=== PATIENT | male | born 1945 | race Caucasian/White ===

== ENCOUNTER 2016-10-17 08:45 | Outpatient (RCR) | payer MEDICARE, OTHER ==
[~2016-10-17 08:45] MED LIST: AMBIEN 10MG10 MG PO; CARDURA4 MG PO; COMPAZINE 110 MG/TAB PO; DIOVAN; DIOVAN 80MG80 MG PO; FLOMAX 0.40.4 MG/CAP PO; LEVAQUIN 750MG750 M1 PO; PERCOCET 5/321 UDTAB PO; TOPROL XL100 MG PO; ZOVIRAX400 MG PO; ZYLOPRIM 300MG300 MG PO
== END 2016-10-18 09:04 | disposition home or self-care (01) ==
LOC: MKS.ESL.PT 08:45
DX: M25.561 Pain in right knee (principal); Z87.828 Personal history of other (healed) physical injury and trauma
CPT/HCPCS: G8978-GP; G8979-GP; G8980-GP

== ENCOUNTER 2017-01-13 21:18 | Emergency (ER) | payer MEDICARE, OTHER ==
[~2017-01-13] VITALS: Ht 185.4 cm; Wt 122.7 kg
[2017-01-13 21:24] VITALS: TEMP 97.9
[2017-01-13 22:09] LABS: PH 6 (5-8); SQUAMOUS EPITHELIAL None Seen /hpf; URINE APPEARANCE Hazy; URINE BACTERIA Rare /hpf; URINE BILIRUBIN Negative (NEGATIVE); URINE BLOOD 2+ (NEGATIVE); URINE COLOR Red; URINE GLUCOSE Negative (NEGATIVE); URINE KETONE Negative (NEGATIVE); URINE RBC >50 /hpf; URINE UROBILINOGEN Negative (NEGATIVE); URINE WBC None Seen /hpf
[2017-01-13] MEDS ORDERED: MACROBID 1100 MG/CAP PO (22:18)
[2017-01-13] MEDS ORDERED: FLOMAX 0.40.4 MG/CAP PO (22:18)
[2017-01-13 22:22] VITALS: BP 124/74; PULSE 80
== END 2017-01-13 22:47 | disposition home or self-care (01) ==
LOC: COL.ER 21:18
PROVIDERS: Emergency Medicine
DX: N40.1 Benign prostatic hyperplasia with lower urinary tract symptoms (principal); R33.8 Other retention of urine; I10 Essential (primary) hypertension; Z85.6 Personal history of leukemia

== ENCOUNTER 2017-01-14 01:06 | Emergency (ER) | payer MEDICARE, OTHER ==
[~2017-01-14] VITALS: Ht 185.4 cm; Wt 122.7 kg
[~2017-01-14 01:06] MED LIST changes: +MACROBID 1100 MG/CAP PO
[2017-01-14 01:07] VITALS: TEMP 98.1
[2017-01-14 03:31] VITALS: BP 137/89; PULSE 81
== END 2017-01-14 03:31 | disposition home or self-care (01) ==
LOC: COL.ER 01:06
DX: T83.098A Other mechanical complication of other urinary catheter, initial encounter (principal); R33.9 Retention of urine, unspecified; R31.9 Hematuria, unspecified; I10 Essential (primary) hypertension; Z85.6 Personal history of leukemia

== ENCOUNTER 2017-10-08 06:54 | Emergency (ER) | payer MEDICARE, OTHER ==
[~2017-10-08] VITALS: Ht 185.4 cm; Wt 117.3 kg
[2017-10-08 06:59] VITALS: TEMP 96.9
[2017-10-08 07:33] LABS: COLLECTION METHOD CATHETER
[2017-10-08 08:01] LABS: PH 6 (5-8); SQUAMOUS EPITHELIAL None Seen /hpf; URINE APPEARANCE Clear; URINE BACTERIA Rare /hpf; URINE BILIRUBIN Negative (NEGATIVE); URINE BLOOD 2+ (NEGATIVE); URINE COLOR Amber; URINE GLUCOSE 1+ (NEGATIVE); URINE KETONE Negative (NEGATIVE); URINE LEUKOCYTE ESTERASE Negative (NEGATIVE); URINE NITRATE Negative (NEGATIVE); URINE PROTEIN(semi-quant) 2+ (NEGATIVE); URINE RBC 20-50 /hpf; URINE UROBILINOGEN Negative (NEGATIVE)
[2017-10-08 08:30] VITALS: BP 107/66; PULSE 76
[2017-10-08] MEDS ORDERED: MACROBID 1100 MG/CAP PO (08:39)
[2017-10-08] MEDS ORDERED: FLOMAX 0.40.4 MG/CAP PO (08:39)
== END 2017-10-08 09:02 | disposition home or self-care (01) ==
LOC: COL.ER 06:54
PROVIDERS: Emergency Medicine
DX: R33.9 Retention of urine, unspecified (principal); I10 Essential (primary) hypertension; Z90.79 Acquired absence of other genital organ(s); Z87.430 Personal history of prostatic dysplasia

== ENCOUNTER → 2017-11-18 | Outpatient (CLI) | payer MEDICARE, OTHER ==
[~2017-11-18] MED LIST changes: +DIOVAN 160MG160 MG PO
== END ==
LOC: COL.RAD 09:41
DX: R22.0 Localized swelling, mass and lump, head (principal); Z85.6 Personal history of leukemia

== ENCOUNTER → 2017-11-28 | Outpatient (CLI) | payer MEDICARE, OTHER ==
[~2017-11-28] VITALS: Ht 185.4 cm; Wt 111.6 kg
[2017-11-28 11:15] VITALS: BP 148/78; PULSE 61
[2017-11-28 12:25] VITALS: BP 130/77; PULSE 63
== END ==
LOC: COL.RAD 10:14
DX: R22.0 Localized swelling, mass and lump, head (principal); Z85.6 Personal history of leukemia

== ENCOUNTER 2017-12-29 22:41 | Emergency (ER) | payer MEDICARE, OTHER ==
[~2017-12-29] VITALS: Ht 185.4 cm; Wt 117.3 kg
[2017-12-29 22:46] VITALS: TEMP 97.4
[2017-12-29 23:21] LABS: HEMATOCRIT 42.8 % (42.0-52.0); HEMOGLOBIN 14.3 g/dl (13.5-18.0); MEAN CELL VOLUME 86 fl (80.0-100.0); MEAN CORPUSCULAR HEMOGLOBIN 29 pg (27.0-31.0); MEAN CORPUSCULAR HGB CONC 33 g/dl (33.0-37.0); MEAN PLATELET VOLUME 11.4 fl (7.4-10.4); PLATELET COUNT 87 K/mm3 (130-400); REDCELL DISTRIBUTION WIDTH-CV 14.4 % (11.5-14.5)
[2017-12-29 23:31] LABS: ALBUMIN 3.5 gm/dL (3.5-5.0); BILIRUBIN,TOTAL 0.8 mg/dL (0.0-1.0); CALCIUM 8.8 mg/dL (8.4-10.2); CREATININE, serum 1.2 mg/dL (0.66-1.25); MAGNESIUM 1.8 mg/dL (1.6-2.3); PHOSPHOROUS 2.7 mg/dL (2.5-4.5); POTASSIUM 4.6 mmol/L (3.4-5.0); TOTAL PROTEIN 6.1 gm/dL (6.4-8.2)
[2017-12-29 23:32] LABS: INR 1.1 (0.8-3.0)
[2017-12-29 23:35] LABS: PARTIAL THROMBOPLASTIN TIME 29.6 SECONDS (26.0-37.0)
[2017-12-29 23:36] LABS: BAND 12 % (0-10); EOSINOPHIL 4 % (0-4); LYMPHOCYTE 54 % (20.0-51.0); NEUTROPHILS 28 % (42.0-75.2); PLATELET ESTIMATE DECREASED (NORMAL)
[2017-12-30 00:35] LABS: COLLECTION METHOD CLEAN CATCH
[2017-12-30 00:45] LABS: MUCOUS Present /lpf; PH 5 (5-8); SQUAMOUS EPITHELIAL 0-2 /hpf; URINE APPEARANCE Hazy; URINE BACTERIA Rare /hpf; URINE BILIRUBIN Negative (NEGATIVE); URINE BLOOD 1+ (NEGATIVE); URINE COLOR Amber; URINE GLUCOSE Negative (NEGATIVE); URINE KETONE Trace (NEGATIVE); URINE LEUKOCYTE ESTERASE Trace (NEGATIVE); URINE NITRATE Negative (NEGATIVE); URINE PROTEIN(semi-quant) 2+ (NEGATIVE)
[2017-12-30] MEDS ORDERED: ZYLOPRIM 300MG300 MG PO (01:19)
[2017-12-30 01:47] VITALS: BP 115/585
[2017-12-30] MEDS ORDERED: PERCOCET 325 MG1 TA2 PO (04:00)
[2017-12-30] MEDS ORDERED: ZOFRAN ODT4 MG PO (04:00)
[2017-12-30 05:59] VITALS: PULSE 95
[2017-12-30 06:09] LABS: TROPONIN-I < 0.012 ng/mL (0.000-0.034)
[2017-12-30 08:17] LABS: PATHOLOGY DIFF REVIEW OK
== END 2017-12-30 05:58 | disposition home or self-care (01) ==
LOC: COL.ER 22:41
PROVIDERS: Emergency Medicine
DX: C91.10 Chronic lymphocytic leukemia of B-cell type not having achieved remission (principal); I10 Essential (primary) hypertension
CPT/HCPCS: J1170; J2405; J3010; J7030; Q9967

== ENCOUNTER 2018-02-21 08:33 | Inpatient (IN) | payer MEDICARE, OTHER ==
[~2018-02-21] VITALS: Ht 185.4 cm; Wt 79.0 kg
[2018-02-21] VITALS (10 sets, daily range): BP systolic 109–166; BP diastolic 49–65; PULSE 62–89; TEMP 97.8
[~2018-02-21 08:33] MED LIST changes: +ASPIRIN 81M81 MG/TA2 PO; +CARDIZEM CD 18180 MG PO; +CORDARONE200 MG/TAB PO; +PERCOCET 325 MG1 TA2 PO; +PHENERGAN 25 TA25 MG PO; +PREDNISONE20 MG PO; +ULORIC40 MG PO; +VENTOLIN0.09 MG IH; +ZANTAC 150MG T150 MG PO; +ZOFRAN ODT4 MG PO
[2018-02-21 09:17] LABS: MEAN CELL VOLUME 84 fl (80.0-100.0); MEAN CORPUSCULAR HGB CONC 34 g/dl (33.0-37.0); MEAN PLATELET VOLUME 11.1 fl (7.4-10.4); PLATELET COUNT 114 K/mm3 (130-400); RED BLOOD COUNT 3.21 M/mm3 (4.20-5.60); REDCELL DISTRIBUTION WIDTH-CV 15.6 % (11.5-14.5)
[2018-02-21 09:18] LABS: HEMOGLOBIN 9.2 g/dl (13.5-18.0); MEAN CORPUSCULAR HEMOGLOBIN 29 pg (27.0-31.0)
[2018-02-21] MEDS ORDERED: PACERONE400 MG PO (09:18)
[2018-02-21 09:27] LABS: ALANINE AMINOTRANSFERASE 29 U/L (21-72); ALBUMIN 2.6 gm/dL (3.5-5.0); ALKALINE PHOSPHATASE 54 U/L (50-136); ANION GAP 7 mmol/L (7-16); AST,SGOT 14 U/L (15-37); BILIRUBIN,TOTAL 0.6 mg/dL (0.0-1.0); BLOOD UREA NITROGEN 43 mg/dL (9-20); CALCIUM 7.8 mg/dL (8.4-10.2); CARBON DIOXIDE 22 mmol/L (22-30); CHLORIDE 98 mmol/L (98-107); CREATININE, serum 0.98 mg/dL (0.66-1.25); GLUCOSE 130 mg/dL (74-106); LIPASE 77 U/L (23-300); MAGNESIUM 1.7 mg/dL (1.6-2.3); PHOSPHOROUS 2.5 mg/dL (2.5-4.5); POTASSIUM 4.8 mmol/L (3.4-5.0); SODIUM 128 mmol/L (137-145); TOTAL PROTEIN 5.2 gm/dL (6.4-8.2)
[2018-02-21] MEDS ORDERED: VENTOLIN0.09 MG IH (09:30)
[2018-02-21] MEDS ORDERED: COMPAZINE 110 MG/TAB PO (09:30)
[2018-02-21 09:40] LABS: TROPONIN-I < 0.012 ng/mL (0.000-0.034)
[2018-02-21 09:41] LABS: INR 1.1 (0.8-3.0); PROTHROMBIN TIME 12.5 SECONDS (9.7-12.8)
[2018-02-21 09:44] LABS: PARTIAL THROMBOPLASTIN TIME 25.9 SECONDS (26.0-37.0)
[2018-02-21 09:48] LABS: BAND 8 % (0-10); LYMPHOCYTE 17 % (20.0-51.0); NEUTROPHILS 71 % (42.0-75.2)
[2018-02-21 09:50] LABS: PLATELET ESTIMATE DECREASED (NORMAL)
[2018-02-21 09:52] LABS: TEAR DROP CELLS 1+
[2018-02-21 10:35] LABS: COLLECTION METHOD CLEAN CATCH
[2018-02-21 10:46] LABS: MUCOUS Present /lpf; PH 5 (5-8); SQUAMOUS EPITHELIAL 0-2 /hpf; URINE APPEARANCE Clear; URINE BACTERIA None Seen /hpf; URINE BILIRUBIN Negative (NEGATIVE); URINE BLOOD Negative (NEGATIVE); URINE COLOR Yellow; URINE GLUCOSE Negative (NEGATIVE); URINE KETONE Negative (NEGATIVE); URINE LEUKOCYTE ESTERASE Negative (NEGATIVE); URINE NITRATE Negative (NEGATIVE); URINE PROTEIN(semi-quant) Negative (NEGATIVE); URINE UROBILINOGEN Negative (NEGATIVE)
[2018-02-21 12:18] LABS: MEAN CELL VOLUME 83 fl (80.0-100.0); MEAN CORPUSCULAR HGB CONC 35 g/dl (33.0-37.0); MEAN PLATELET VOLUME 11.2 fl (7.4-10.4); PLATELET COUNT 115 K/mm3 (130-400); RED BLOOD COUNT 3.01 M/mm3 (4.20-5.60); REDCELL DISTRIBUTION WIDTH-CV 15.6 % (11.5-14.5)
[2018-02-21 12:22] LABS: HEMATOCRIT 24.9 % (42.0-52.0); HEMOGLOBIN 8.6 g/dl (13.5-18.0); MEAN CORPUSCULAR HEMOGLOBIN 29 pg (27.0-31.0)
[2018-02-21 12:43] LABS: BAND 4 % (0-10); LYMPHOCYTE 20 % (20.0-51.0); NEUTROPHILS 71 % (42.0-75.2)
[2018-02-21 12:44] LABS: PLATELET ESTIMATE DECREASED (NORMAL)
[2018-02-21 12:46] LABS: ANISOCYTOSIS 1+
[2018-02-21 19:35] LABS: HEMATOCRIT 22.5 % (42.0-52.0); HEMOGLOBIN 7.6 g/dl (13.5-18.0)
[2018-02-22] VITALS (10 sets, daily range): BP systolic 101–131; BP diastolic 54–66; PULSE 88–96; TEMP 97.9–98.8
[2018-02-22 13:06] LABS: MEAN CELL VOLUME 85 fl (80.0-100.0); MEAN CORPUSCULAR HGB CONC 33 g/dl (33.0-37.0); PLATELET COUNT 107 K/mm3 (130-400); RED BLOOD COUNT 2.37 M/mm3 (4.20-5.60); REDCELL DISTRIBUTION WIDTH-CV 16.5 % (11.5-14.5)
[2018-02-22 13:07] LABS: HEMATOCRIT 20.2 % (42.0-52.0); MEAN CORPUSCULAR HEMOGLOBIN 28 pg (27.0-31.0)
[2018-02-22 13:08] LABS: HEMOGLOBIN 6.7 g/dl (13.5-18.0)
[2018-02-22 13:12] LABS: CALCIUM 7.6 mg/dL (8.4-10.2); CREATININE, serum 1.02 mg/dL (0.66-1.25); MAGNESIUM 1.8 mg/dL (1.6-2.3); POTASSIUM 4.5 mmol/L (3.4-5.0)
[2018-02-22 14:10] LABS: ANISOCYTOSIS 1+; BAND 4 % (0-10); LYMPHOCYTE 18 % (20.0-51.0); NEUTROPHILS 74 % (42.0-75.2); PLATELET ESTIMATE DECREASED (NORMAL)
[2018-02-22 14:13] LABS: TEAR DROP CELLS 1+
[2018-02-22 23:32] LABS: HEMOGLOBIN 5.5 g/dl (13.5-18.0)
[2018-02-22 23:33] LABS: HEMATOCRIT 16.4 % (42.0-52.0)
[2018-02-22 23:55] LABS: HEMATOCRIT 16.3 % (42.0-52.0); HEMOGLOBIN 5.4 g/dl (13.5-18.0)
[2018-02-23] VITALS (664 sets, daily range): BP systolic 106–128; BP diastolic 60–75; PULSE 87–119; TEMP 98.2–98.4; O2SAT 94–100
[2018-02-23 08:07] LABS: MEAN CELL VOLUME 87 fl (80.0-100.0); MEAN CORPUSCULAR HGB CONC 33 g/dl (33.0-37.0); MEAN PLATELET VOLUME 10.9 fl (7.4-10.4); PLATELET COUNT 87 K/mm3 (130-400); RED BLOOD COUNT 2.54 M/mm3 (4.20-5.60); REDCELL DISTRIBUTION WIDTH-CV 15.9 % (11.5-14.5)
[2018-02-23 08:10] LABS: HEMATOCRIT 22.2 % (42.0-52.0); HEMOGLOBIN 7.4 g/dl (13.5-18.0); MEAN CORPUSCULAR HEMOGLOBIN 29 pg (27.0-31.0)
[2018-02-23 08:15] LABS: CALCIUM 7.3 mg/dL (8.4-10.2); CREATININE, serum 1.03 mg/dL (0.66-1.25); POTASSIUM 4.2 mmol/L (3.4-5.0)
[2018-02-23 08:37] LABS: BAND 7 % (0-10); LYMPHOCYTE 10 % (20.0-51.0); METAMYELOCYTE 1 % (0-0); NEUTROPHILS 78 % (42.0-75.2)
[2018-02-23 08:38] LABS: PLATELET ESTIMATE DECREASED (NORMAL)
[2018-02-23 08:39] LABS: ANISOCYTOSIS 1+; POLYCHROMASIA 1+
[2018-02-24] VITALS (710 sets, daily range): BP systolic 118–142; BP diastolic 68–79; PULSE 78–93; TEMP 97.5–98.5; O2SAT 77–100
[2018-02-24 00:15] LABS: HEMOGLOBIN 5.8 g/dl (13.5-18.0)
[2018-02-24 00:16] LABS: HEMATOCRIT 16.9 % (42.0-52.0)
[2018-02-24 07:07] LABS: MEAN CELL VOLUME 89 fl (80.0-100.0); MEAN CORPUSCULAR HGB CONC 33 g/dl (33.0-37.0); MEAN PLATELET VOLUME 11.2 fl (7.4-10.4); PLATELET COUNT 76 K/mm3 (130-400); RED BLOOD COUNT 2.44 M/mm3 (4.20-5.60); REDCELL DISTRIBUTION WIDTH-CV 16.3 % (11.5-14.5)
[2018-02-24 07:11] LABS: HEMATOCRIT 21.6 % (42.0-52.0); HEMOGLOBIN 7.2 g/dl (13.5-18.0); MEAN CORPUSCULAR HEMOGLOBIN 30 pg (27.0-31.0)
[2018-02-24 07:16] LABS: CALCIUM 7.1 mg/dL (8.4-10.2); POTASSIUM 3.9 mmol/L (3.4-5.0)
[2018-02-24 07:23] LABS: BAND 9 % (0-10); EOSINOPHIL 2 % (0-4); LYMPHOCYTE 10 % (20.0-51.0); NEUTROPHILS 75 % (42.0-75.2)
[2018-02-24 07:26] LABS: HYPOCHROMIA 1+; PLATELET ESTIMATE DECREASED (NORMAL)
[2018-02-24 07:29] LABS: ANISOCYTOSIS 1+
[2018-02-25] VITALS (723 sets, daily range): BP systolic 99–126; BP diastolic 51–71; PULSE 72–85; TEMP 97.2–98.4; O2SAT 42–100
[2018-02-25 00:44] LABS: HEMOGLOBIN 6.2 g/dl (13.5-18.0)
[2018-02-25 08:03] LABS: MEAN CELL VOLUME 90 fl (80.0-100.0); MEAN CORPUSCULAR HGB CONC 32 g/dl (33.0-37.0); MEAN PLATELET VOLUME 10.9 fl (7.4-10.4); PLATELET COUNT 57 K/mm3 (130-400); RED BLOOD COUNT 2.62 M/mm3 (4.20-5.60); REDCELL DISTRIBUTION WIDTH-CV 18.6 % (11.5-14.5)
[2018-02-25 08:04] LABS: HEMATOCRIT 23.6 % (42.0-52.0); HEMOGLOBIN 7.6 g/dl (13.5-18.0); MEAN CORPUSCULAR HEMOGLOBIN 29 pg (27.0-31.0)
[2018-02-25 08:14] LABS: CALCIUM 7.2 mg/dL (8.4-10.2); CREATININE, serum 0.94 mg/dL (0.66-1.25); POTASSIUM 3.6 mmol/L (3.4-5.0)
[2018-02-25 09:07] LABS: BAND 8 % (0-10); LYMPHOCYTE 18 % (20.0-51.0); NEUTROPHILS 73 % (42.0-75.2); NUCLEATED RED BLOOD CELL 1 (0-6); PLATELET ESTIMATE DECREASED (NORMAL)
[2018-02-25 09:08] LABS: ANISOCYTOSIS 1+; HYPOCHROMIA 1+; POIKILOCYTOSIS 1+; POLYCHROMASIA 2+
[2018-02-25 09:09] LABS: BURR CELLS 1+
[2018-02-26] VITALS (327 sets, daily range): BP systolic 114–131; BP diastolic 64–86; PULSE 79–84; TEMP 89.3–98.1; O2SAT 92–100
[2018-02-26 00:15] LABS: HEMATOCRIT 22.9 % (42.0-52.0); HEMOGLOBIN 7.8 g/dl (13.5-18.0)
[2018-02-26 06:10] LABS: MEAN CELL VOLUME 89 fl (80.0-100.0); MEAN CORPUSCULAR HGB CONC 33 g/dl (33.0-37.0); MEAN PLATELET VOLUME 11.9 fl (7.4-10.4); PLATELET COUNT 61 K/mm3 (130-400); RED BLOOD COUNT 2.54 M/mm3 (4.20-5.60); REDCELL DISTRIBUTION WIDTH-CV 19.4 % (11.5-14.5)
[2018-02-26 06:15] LABS: CREATININE, serum 0.88 mg/dL (0.66-1.25); POTASSIUM 3.4 mmol/L (3.4-5.0)
[2018-02-26 06:20] LABS: HEMATOCRIT 22.5 % (42.0-52.0); HEMOGLOBIN 7.4 g/dl (13.5-18.0); MEAN CORPUSCULAR HEMOGLOBIN 29 pg (27.0-31.0)
[2018-02-26 06:58] LABS: BAND 9 % (0-10); EOSINOPHIL 1 % (0-4); LYMPHOCYTE 33 % (20.0-51.0); NEUTROPHILS 55 % (42.0-75.2)
[2018-02-26 06:59] LABS: ANISOCYTOSIS 1+; HYPOCHROMIA 1+; PLATELET ESTIMATE DECREASED (NORMAL); POLYCHROMASIA 1+
[2018-02-27 00:11] VITALS: BP 114/60; PULSE 84; TEMP 97.4
[2018-02-27 00:54] LABS: MEAN CELL VOLUME 89 fl (80.0-100.0); MEAN CORPUSCULAR HGB CONC 32 g/dl (33.0-37.0); MEAN PLATELET VOLUME 10.6 fl (7.4-10.4); PLATELET COUNT 61 K/mm3 (130-400); RED BLOOD COUNT 2.52 M/mm3 (4.20-5.60); REDCELL DISTRIBUTION WIDTH-CV 19.7 % (11.5-14.5)
[2018-02-27 00:57] LABS: HEMATOCRIT 22.5 % (42.0-52.0); HEMOGLOBIN 7.3 g/dl (13.5-18.0); MEAN CORPUSCULAR HEMOGLOBIN 29 pg (27.0-31.0)
[2018-02-27 03:45] VITALS: BP 123/67; PULSE 80; TEMP 97.8
[2018-02-27 07:31] LABS: MEAN CELL VOLUME 91 fl (80.0-100.0); MEAN CORPUSCULAR HGB CONC 32 g/dl (33.0-37.0); MEAN PLATELET VOLUME 10.5 fl (7.4-10.4); PLATELET COUNT 63 K/mm3 (130-400); RED BLOOD COUNT 2.49 M/mm3 (4.20-5.60); REDCELL DISTRIBUTION WIDTH-CV 19.5 % (11.5-14.5)
[2018-02-27 07:32] LABS: HEMATOCRIT 22.6 % (42.0-52.0); HEMOGLOBIN 7.3 g/dl (13.5-18.0); MEAN CORPUSCULAR HEMOGLOBIN 29 pg (27.0-31.0)
[2018-02-27 07:44] LABS: CREATININE, serum 0.86 mg/dL (0.66-1.25); POTASSIUM 3.3 mmol/L (3.4-5.0)
[2018-02-27 08:09] LABS: ANISOCYTOSIS 2+; BAND 7 % (0-10); BASOPHIL 2 % (0-2); EOSINOPHIL 1 % (0-4); LYMPHOCYTE 18 % (20.0-51.0); METAMYELOCYTE 1 % (0-0); NEUTROPHILS 67 % (42.0-75.2); PLATELET ESTIMATE DECREASED (NORMAL); POLYCHROMASIA 1+
[2018-02-27 08:12] VITALS: BP 119/64; PULSE 89; TEMP 98.2
[2018-02-27 10:57] LABS: ALBUMIN 1.9 gm/dL (3.5-5.0); BILIRUBIN,TOTAL 0.5 mg/dL (0.0-1.0); CALCIUM 7.2 mg/dL (8.4-10.2); CREATININE, serum 0.9 mg/dL (0.66-1.25); MAGNESIUM 1.7 mg/dL (1.6-2.3); POTASSIUM 3.4 mmol/L (3.4-5.0); TOTAL PROTEIN 4.1 gm/dL (6.4-8.2); URIC ACID 4.5 mg/dL (3.5-8.5)
[2018-02-27 11:35] VITALS: BP 121/73; PULSE 93; TEMP 97.9
[2018-02-27] MEDS ORDERED: PACERONE400 MG PO ×2 (13:35→14:27)
[2018-02-27] MEDS ORDERED: TYLENOL 325MG325 MG PO (13:36)
[2018-02-27] MEDS ORDERED: CARAFATE S1 GM/10 ML PO (13:37)
[2018-02-27] MEDS ORDERED: PROTONIX 40MG T40 MG PO (13:37)
[2018-02-27] MEDS ORDERED: PERCOCET 325 MG1 TA2 PO (13:38)
[2018-02-27] MEDS ORDERED: LIDODERM 5% PATC1 EA TP (13:38)
[2018-02-27 13:45] VITALS: BP 121/73; PULSE 93; TEMP 97.9
[2018-02-27] MEDS ORDERED: [UNRECOGNIZED DRUG - OTHER] PO (13:53)
== END 2018-02-27 15:15 | DRG 378 ==
LOC: COL.ER 08:33 → MEDICAL 11:13 → SURG 11:13 → COL.ER 11:13 → ICU 11:13 → MEDICAL 02-23 07:50 → ICU 02-23 07:50 → EU 02-23 07:50 → SURG 02-26 17:03 → ICU 02-26 17:03 → SURG 02-26 19:00
PROVIDERS: Emergency Medicine; Hospitalist; Internal Medicine; Internal Medicine Gastroenterology; Nurse Practitioner Family; Physician Assistant
PROC: 0W3P8ZZ Control Bleeding in Gastrointestinal Tract, Via Natural or Artificial Opening Endoscopic (ICD-10-PCS; 2018-02-21)
PROC: 0DB68ZX Excision of Stomach, Via Natural or Artificial Opening Endoscopic, Diagnostic (ICD-10-PCS; principal; 2018-02-21 15:15)
PROC: 0DJ08ZZ Inspection of Upper Intestinal Tract, Via Natural or Artificial Opening Endoscopic (ICD-10-PCS; 2018-02-24)
PROC: 0DJD8ZZ Inspection of Lower Intestinal Tract, Via Natural or Artificial Opening Endoscopic (ICD-10-PCS; 2018-02-26)
DX: K26.4 Chronic or unspecified duodenal ulcer with hemorrhage (principal); D62 Acute posthemorrhagic anemia; C85.90 Non-Hodgkin lymphoma, unspecified, unspecified site; C91.10 Chronic lymphocytic leukemia of B-cell type not having achieved remission; E87.1 Hypo-osmolality and hyponatremia; N39.0 Urinary tract infection, site not specified; E44.0 Moderate protein-calorie malnutrition; I10 Essential (primary) hypertension; I48.0 Paroxysmal atrial fibrillation; D50.0 Iron deficiency anemia secondary to blood loss (chronic); E87.6 Hypokalemia
CPT/HCPCS: 99223-AI; 99233-AI; 99239; C9113; J0696; J2060; J2704; J3010; J7030; J7120; P9016; Q9967

== ENCOUNTER → 2018-02-28 | Outpatient (REF) ==
[~2018-02-28] MED LIST changes: +CARAFATE S1 GM/10 ML PO; +LIDODERM 5% PATC1 EA TP; +PACERONE400 MG PO; +PROTONIX 40MG T40 MG PO; +TYLENOL 325MG325 MG PO; +[UNRECOGNIZED DRUG - OTHER] PO
[2018-02-28 17:52] LABS: EOS # 0.1 (0.0-0.7); EOS % 1.6 % (0-4.0); GRAN % 65.6 % (42.2-75.2); LYMPH # 0.8 (1.2-3.4); MEAN CELL VOLUME 89 fl (80.0-100.0); MEAN CORPUSCULAR HGB CONC 33 g/dl (33.0-37.0); MEAN PLATELET VOLUME 11.1 fl (7.4-10.4); MONO # 0.2 (0.1-0.6); MONO % 4.8 % (1.7-9.3); PLATELET COUNT 79 K/mm3 (130-400); RED BLOOD COUNT 2.96 M/mm3 (4.20-5.60); REDCELL DISTRIBUTION WIDTH-CV 19.4 % (11.5-14.5)
[2018-02-28 17:57] LABS: HEMATOCRIT 26.3 % (42.0-52.0); HEMOGLOBIN 8.6 g/dl (13.5-18.0); MEAN CORPUSCULAR HEMOGLOBIN 29 pg (27.0-31.0)
[2018-02-28 18:00] LABS: BILIRUBIN,TOTAL 0.6 mg/dL (0.0-1.0); CALCIUM 7.2 mg/dL (8.4-10.2); CREATININE, serum 0.87 mg/dL (0.66-1.25); POTASSIUM 3.6 mmol/L (3.4-5.0); TOTAL PROTEIN 4.1 gm/dL (6.4-8.2)
== END ==
LOC: ZCOL.LAB 17:47
PROVIDERS: Internal Medicine
DX: C85.91 Non-Hodgkin lymphoma, unspecified, lymph nodes of head, face, and neck (principal); D64.9 Anemia, unspecified; D69.6 Thrombocytopenia, unspecified; K92.2 Gastrointestinal hemorrhage, unspecified

== ENCOUNTER → 2018-03-28 | Outpatient (CLI) | payer MEDICARE, OTHER | LOC: COL.LAB 16:15 | DX: Z09 Encounter for follow-up examination after completed treatment for conditions other than malignant neoplasm (principal); Z87.440 Personal history of urinary (tract) infections ==

== ENCOUNTER 2018-09-29 02:55 | Emergency (ER) | payer MEDICARE, OTHER ==
[~2018-09-29] VITALS: Ht 185.4 cm; Wt 105.5 kg
[2018-09-29 02:58] VITALS: TEMP 97.6
[2018-09-29] MEDS ORDERED: COZAAR100 MG PO (03:08)
[2018-09-29 03:56] LABS: BASO % 0.6 % (0.0-2.0); EOS # 0.1 (0.0-0.7); EOS % 1.4 % (0-4.0); GRAN # 4.6 (1.4-6.5); GRAN % 69.4 % (42.2-75.2); LYMPH # 1.2 (1.2-3.4); LYMPH % 18.1 % (20.0-51.0); MEAN CELL VOLUME 88 fl (80.0-100.0); MEAN CORPUSCULAR HEMOGLOBIN 29 pg (27.0-31.0); MEAN CORPUSCULAR HGB CONC 33 g/dl (33.0-37.0); MEAN PLATELET VOLUME 10.3 fl (7.4-10.4); MONO # 0.6 (0.1-0.6); MONO % 9.3 % (1.7-9.3); PLATELET COUNT 108 K/mm3 (130-400); RED BLOOD COUNT 5.12 M/mm3 (4.20-5.60); REDCELL DISTRIBUTION WIDTH-CV 15.1 % (11.5-14.5)
[2018-09-29 04:21] LABS: ALBUMIN 4.1 gm/dL (3.5-5.0); BILIRUBIN,TOTAL 0.5 mg/dL (0.0-1.0); CALCIUM 9.1 mg/dL (8.4-10.2); CREATININE, serum 1.23 mg/dL (0.66-1.25); POTASSIUM 4.2 mmol/L (3.4-5.0); TOTAL PROTEIN 6.7 gm/dL (6.4-8.2)
[2018-09-29 04:41] LABS: ERYTHROCYTE SEDIMENTATION RATE 1 mm/hr (0-30)
[2018-09-29] MEDS ORDERED: FIORICET 325 MG1 TA1 PO (05:23)
[2018-09-29 05:28] VITALS: BP 159/105; PULSE 63
== END 2018-09-29 05:36 | disposition home or self-care (01) ==
LOC: COL.ER 02:55
PROVIDERS: Emergency Medicine
DX: R51 Headache (principal); I48.91 Unspecified atrial fibrillation; I10 Essential (primary) hypertension; E66.9 Obesity, unspecified; Z98.890 Other specified postprocedural states; Z85.72 Personal history of non-Hodgkin lymphomas; Z68.30 Body mass index [BMI] 30.0-30.9, adult

== ENCOUNTER 2018-12-05 18:36 | Emergency (ER) | payer MEDICARE, OTHER ==
[~2018-12-05] VITALS: Ht 185.4 cm; Wt 109.5 kg
[~2018-12-05 18:36] MED LIST changes: +COZAAR100 MG PO; +FIORICET 325 MG1 TA1 PO
[2018-12-05 18:41] VITALS: TEMP 97.3
[2018-12-05 20:04] VITALS: BP 161/84; PULSE 67
== END 2018-12-05 20:04 | disposition home or self-care (01) ==
LOC: COL.ER 18:36
DX: B99.9 Unspecified infectious disease (principal); H10.89 Other conjunctivitis; I10 Essential (primary) hypertension

== ENCOUNTER 2022-01-05 12:04 | Day surgery (SDC) | payer MEDICARE, OTHER ==
[2022-01-05] VITALS (11 sets, daily range): BP systolic 104–137; BP diastolic 52–79; PULSE 55–70; TEMP 97.6–98.5
[~2022-01-05] VITALS: Wt 108.3 kg
[2022-01-05] MEDS ORDERED: TOPROL XL 25MG25 MG PO (12:47)
[2022-01-05] MEDS ORDERED: DIOVAN 160MG160 MG PO (12:47)
[2022-01-05] MEDS ORDERED: CALQUENCE100 MG PO (12:47)
[2022-01-05] MEDS ORDERED: CARAFATE 1GM1 G PO (12:48)
[2022-01-05] MEDS ORDERED: PEPCID 20MG TAB20 MG PO (12:49)
--- NOTE | 2022-01-05 21:05 | NUR ---
ASSESSMENT COMPLETE. PT. LYING IN BED SLEEPING. A&O. NO COMPLAINTS OF PAIN. CBI DRAINING TO GRAVITY. URINE IS A GRANT RED COLOR. STAT LOCK IN PLACE. IV FLUIDS INFUSING INTO RIGHT WRIST AT 100 ML/HR. CALL LIGHT IN REACH. NO FURTHER NEEDS AT THIS TIME.
[2022-01-06 03:58] VITALS: BP 118/72; PULSE 59; TEMP 97.4
--- NOTE | 2022-01-06 05:22 | NUR ---
PT. SPENT THE NIGHT SLEEPING. CBI WAS MONITORED AND REPLACED NEEDED. NO COMPLAINTS OF PAIN. NO NEEDS THROUGHOUT THE NIGHT.
--- NOTE | 2022-01-06 07:16 | NUR ---
Patient laying in bed, A&Ox4. VSS. IV CDI, fluids infusing. CBI by gravity, valera intact. Denies pain and discomfort. No further needs expressed. Call light within reach
[2022-01-06 07:48] VITALS: BP 114/70; PULSE 63; TEMP 97.9
[2022-01-06 11:46] VITALS: BP 142/67; PULSE 74; TEMP 97.7
--- NOTE | 2022-01-06 16:31 | NUR ---
Discharge paperwork reviewed with the patient. Patient verbalized an understanding. IV removed, tip intact. Nurse took patient by wheelchair to ED to awaiting vehicle. No further needs expressed.
== END 2022-01-06 16:30 | disposition home or self-care (01) ==
LOC: SDCO 12:04 → SURG 15:51 → SDCO 01-06 16:30
DX: N40.0 Benign prostatic hyperplasia without lower urinary tract symptoms (principal); N40.1 Benign prostatic hyperplasia with lower urinary tract symptoms; N13.8 Other obstructive and reflux uropathy; R31.0 Gross hematuria; Z79.899 Other long term (current) drug therapy
CPT/HCPCS: OP; J0690; J2250; J2405; J2704; J3480; J7120